=== PATIENT | female | born 1985 | race Hispanic/Latino ===

== ENCOUNTER 2024-03-01 13:21 | Emergency (ER) | payer OTHER ==
[~2024-03-01] VITALS: Ht 165.1 cm; Wt 78.6 kg
[2024-03-01 13:28] VITALS: PULSE 86; RESP 16; TEMP 98.3
[2024-03-01] MEDS ORDERED: IOPAMIDOL 370 MG/ML 100 ML INFUS..BTL INJ ONE (13:44)
[2024-03-01] MEDS: LACTATED RINGER'S 1,000 ML INJ ONE (14:15)
[2024-03-01] MEDS: FAMOTIDINE 20 MG/2 ML VIAL IV ONE (14:15)
[2024-03-01] MEDS: KETOROLAC TROMETHAMINE 30 MG/ML VIAL IV ONE (14:15)
[2024-03-01] MEDS: ONDANSETRON HCL INJ 2MG/ML 2ML 2 MG/ML VIAL IV ONE (14:15)
[2024-03-01] MEDS ORDERED: MAALOX MAXIMUM355 ML PO (15:21)
[2024-03-01] MEDS ORDERED: ULTRAM 50MG50 MG PO (15:21)
[2024-03-01] MEDS ORDERED: OMEPRAZOLE40 MG PO (15:21)
[2024-03-01] MEDS ORDERED: ONDANSETRON ODT4 MG PO (15:21)
[2024-03-01 15:30] VITALS: BP 110/76; PULSE 66; RESP 16; TEMP 98.7; O2SAT 100
== END 2024-03-01 15:35 | disposition home or self-care (01) ==
LOC: FSED 13:27
DX: R10.11 Right upper quadrant pain (principal); K80.20 Calculus of gallbladder without cholecystitis without obstruction; K57.90 Diverticulosis of intestine, part unspecified, without perforation or abscess without bleeding; K80.50 Calculus of bile duct without cholangitis or cholecystitis without obstruction; K76.0 Fatty (change of) liver, not elsewhere classified; K64.4 Residual hemorrhoidal skin tags
CPT/HCPCS: 74177; 80053; 80076; 81003; 81025; 83880; 99283; J1885; J2405; J7121; Q9967